=== PATIENT | female | born 1965 | race Two or more races ===

== ENCOUNTER → 2016-12-08 | Outpatient (CLI) | payer BC ==
--- NOTE | ~2016-12-08 | MY29 ---
[facility] A Service of [facility] RADIOLOGY TEXT RESULTS PATIENT: LUCY SANTOS LOCATION: [facility] : 65 UNIT #: [id number] AGE: [address]: Varinder Longoria MD SEX: F ORDER DR: [id number] [facility] [address] [place], [place] [address] [id number] O MR#: [id number] Acc #: [id number] NAME: LUCY SANTOS : 1965 SEX: F STUDY DATE/TIME: 12/08/2016 9:34 UNIT: [facility] ROOM: STUDY DESCRIPTION: MY MERCED SCREENING W/ CAD BILAT Attending Physician: Varinder Longoria M.D. Ordering Physician: Varinder Longoria M.D. Primary Care Physician: Varinder Longoria M.D. MEDICAL IMAGING REPORT This report is preliminary unless electronic signature is present EXAM Digital screening mammogram 12/08/2016, [facility] HISTORY 51-year-old woman, no risk elevation. Annual screen. COMPARISON Outside mammograms now available, date 05/10/2011, 06/09/2011, 03/07/2014, [place] FINDINGS Digital imaging of each breast was completed utilizing a two-view examination of each breast in craniocaudal and mediolateral-oblique projections. Review and interpretation of digital mammograms include a second review in conjunction with FDA-approved CAD device. There is a normal parenchymal presentation bilaterally consistent with the patient's age. There are no breast masses imaged and no parenchymal asymmetry is visualized. There are no suspicious microcalcifications and I see no focal architectural disturbance. IMPRESSION Negative screening digital mammogram. One-year followup recommended. Patients over the age of 40 are entered into a reminder system with target due date for the next mammogram. A result letter will also be sent to the patient. BIRADS: 1 Negative Dictated by... Loc Arnett M.D. [facility] A Service [facility] RADIOLOGY TEXT RESULTS PATIENT: LUCY SANTOS LOCATION: [facility] : 65 UNIT #: [id number] AGE: [address]: Varinder Longoria MD SEX: F ORDER DR: THIS IS AN ELECTRONICALLY VERIFIED REPORT Loc Arnett M.D. at 12/14/2016 8:21 AM ADRIEL/farhat TD: 12/13/2016 17:02 JOB #: [id number] MEDICAL IMAGING REPORT Page 1 of 1 COPY
== END | disposition home or self-care (01) ==
LOC: CWCC 09:15
DX: Z12.31 Encounter for screening mammogram for malignant neoplasm of breast (principal)
CPT/HCPCS: G0202